=== PATIENT | female | born 1995 | race Hispanic/Latino ===

== ENCOUNTER 2022-12-10 23:16 | Inpatient (IN) | payer MEDICAID, OTHER ==
[2022-12-10] MEDS ORDERED: Oxytocin 30 units/NS 500 ML 500 ML IV SCH (23:45)
[2022-12-10] MEDS ORDERED: Tranexamic Acid 1,000 MG/10 ML VIAL IVP PRN (23:55)
[2022-12-10] MEDS ORDERED: Methylergonovine 0.2 MG/ML VIAL IM PRN (23:55)
[2022-12-10] MEDS ORDERED: Lidocaine 1% (PF) 30 ML VIAL SC PRN (23:55)
[2022-12-10] MEDS ORDERED: Promethazine HCl 25 MG/ML VIAL IM PRN (23:55)
[2022-12-10] MEDS ORDERED: Misoprostol 200 MCG TAB PR PRN (23:55)
[2022-12-10] MEDS ORDERED: Ondansetron PF 4 MG/2 ML Vial IVP PRN (23:55)
[2022-12-10] MEDS ORDERED: Carboprost 250 MCG/ML AMP IM PRN (23:55)
[2022-12-10] MEDS ORDERED: Diphenoxylate HCl/Atropine Tablet PO PRN (23:55)
[2022-12-10] MEDS ORDERED: hydrALAZINE 20 MG/ML VIAL SLOW IVP PRN (23:55)
[2022-12-11] MEDS ORDERED: Penicillin G Potassium 5 MILL.UNITS in Sodium Chloride 0.9% 100 ML IVPB SCH (00:15)
[2022-12-11 00:32] LABS: Hemoglobin 11.3 g/dL (12.0-15.5); Mean Corpuscular HGB CONC 35.3 g/dL (32.0-36.0); Mean Corpuscular Hemoglobin 32.3 pg (27.0-33.0); Mean Corpuscular Volume 91.4 fl (81.6-98.3); Mean Platelet Volume 9.3 fl (7.4-10.4); Platelet Count 279 10x3/uL (150-450); RBC Distribution Width 12.3 % (11.5-14.5); White Blood Cell (WBC) Count 11.8 10x3/uL (3.5-10.5)
[2022-12-11] MEDS ORDERED: fentaNYL/Ropivacaine Epidural 100 ML ONE (00:38)
[2022-12-11 01:03] LABS: HBSAg Index 0.19 S/CO (0-0.99); Hep B Surf Ag - L&D Non-Reactive S/CO (NonReactive)
[2022-12-11] MEDS ORDERED: Moisturizing Cream (Eucerin) 113 GM JAR TOP PRN (01:33)
[2022-12-11] MEDS ORDERED: Ondansetron PF 4 MG/2 ML Vial IVP PRN (01:33)
[2022-12-11] MEDS ORDERED: Naloxone HCl 0.4 mg/ml Vial IVP PRN ×2 (01:33)
[2022-12-11] MEDS ORDERED: diphenhydrAMINE 50 MG/ML VIAL IVP PRN (01:33)
[2022-12-11] MEDS ORDERED: Promethazine HCl 25 MG/ML VIAL IM PRN (01:33)
[2022-12-11] MEDS ORDERED: Lactated Ringer's 500 ML IV PRN (01:33)
[2022-12-11] MEDS ORDERED: ePHEDrine Sulfate 50 MG/10 ML VIAL SLOW IVP PRN (01:33)
[2022-12-11] MEDS ORDERED: Communication Order-Pharmacy FS SCH (01:45)
[2022-12-11] MEDS ORDERED: fentaNYL 2 mcg/Ropivacaine 0.2% Epidural 100 ML CADD EPIDURAL SCH (01:45)
[2022-12-11 03:26] VITALS: BMI 39.2
[2022-12-11 04:41] LABS: Syphilis Antibody Index 18.52 S/CO (<1.00 Non-Reactive)
[2022-12-11 04:45] LABS: Syphilis Antibody INDETERMINATE (Nonreactive)
[2022-12-11] MEDS ORDERED: Penicillin G 2.5 MILL.units 2.5 MILL.UNITS in Premix Bag 1 BAG IVPB SCH (05:00)
[2022-12-11 05:06] LABS: HIV (1/2) Antibody/Antigen Non-Reactive (NonReactive); HIV 1/2 INDEX 0.14 S/CO (<1.00)
[2022-12-11] MEDS ORDERED: Bupivacaine PF 0.5% 30 ML VIAL ONE (08:00)
[2022-12-11] MEDS ORDERED: Oxytocin 30 units/NS 500 ML 500 ML ONE (08:14)
[2022-12-11] MEDS ORDERED: Dextrose 5%-Lactated Ringers 1,000 ML IV SCH ×2 (09:45)
[2022-12-11] MEDS ORDERED: Dexmedetomidine 200 MCG/2 ML VIAL ONE (10:09)
[2022-12-11] MEDS ORDERED: Misoprostol 200 MCG TAB ONE (16:20)
[2022-12-11] MEDS ORDERED: diphenhydrAMINE 25 MG CAP PO PRN (16:33)
[2022-12-11] MEDS ORDERED: Boostrix 0.5 ML (Tdap) VIAL (>/=7 yrs of age) IM ONE (16:33)
[2022-12-11] MEDS ORDERED: hydrALAZINE 20 MG/ML VIAL SLOW IVP PRN (16:33)
[2022-12-11] MEDS ORDERED: Milk Of Magnesia 30 ML UDCUP PO PRN (16:33)
[2022-12-11] MEDS ORDERED: Bisacodyl 10 MG SUPP PR PRN (16:33)
[2022-12-11] MEDS ORDERED: Bicillin LA 2.4 MILL.UNITS/4 ML SYRINGE IM SCH (17:00)
[2022-12-11] MEDS: Gentamicin Sulfate 400 MG in Sodium Chloride 0.9% 100 ML IVPB SCH (17:00)
[2022-12-11] MEDS: Ferrous Sulfate 325 MG TAB PO SCH (18:51)
[2022-12-11] MEDS: Docusate 100 MG CAP PO SCH (21:12)
[2022-12-11] MEDS: Ibuprofen 800 MG TAB PO SCH (21:12)
[2022-12-11] MEDS ORDERED: Benzocaine-Menthol 82.5 ML CAN TOP PRN (21:34)
[2022-12-12] MEDS: Ibuprofen 800 MG TAB PO SCH ×3 (05:12→21:45)
[2022-12-12] MEDS: Acetaminophen 325 MG TAB PO PRN ×2 (05:13→10:13)
[2022-12-12] MEDS: Ferrous Sulfate 325 MG TAB PO SCH ×2 (07:29→14:52)
[2022-12-12] MEDS: Docusate 100 MG CAP PO SCH ×2 (07:48→21:46)
[2022-12-12] MEDS: Gentamicin Sulfate 400 MG in Sodium Chloride 0.9% 100 ML IVPB SCH (17:20)
[2022-12-13] MEDS: Ibuprofen 800 MG TAB PO SCH (05:47)
[2022-12-13] MEDS: Ferrous Sulfate 325 MG TAB PO SCH (07:24)
[2022-12-13 08:03] VITALS: BP 103/65; TEMP 98.5
[2022-12-13] MEDS: Docusate 100 MG CAP PO SCH (08:27)
== END 2022-12-13 12:30 | disposition home or self-care (01) | DRG 805 ==
LOC: CSHLD/OP 23:16 → CSHLD 12-11 02:53 → CSHPP 12-11 18:29
PROVIDERS: ADMIT Family Medicine; ATTEND Family Medicine
PROC: 10E0XZZ Delivery of Products of Conception, External Approach (ICD-10-PCS; principal; 2022-12-11)
PROC: 0KQM0ZZ Repair Perineum Muscle, Open Approach (ICD-10-PCS; 2022-12-11)
PROC: 10H07YZ Insertion of Other Device into Products of Conception, Via Natural or Artificial Opening (ICD-10-PCS; 2022-12-11)
DX: O48.0 Post-term pregnancy (principal); O41.1030 Infection of amniotic sac and membranes, unspecified, third trimester, not applicable or unspecified; Z37.0 Single live birth; O98.12 Syphilis complicating childbirth; Z3A.40 40 weeks gestation of pregnancy; A53.0 Latent syphilis, unspecified as early or late; O70.1 Second degree perineal laceration during delivery
CPT/HCPCS: 36415; 51702; 85027; 86593; 86762; 86780; 86850; 86900; 86901; 87340; 87389; 88307; 99285; J0561; J1200; J1580; J2540; J2590; J3490; S0020